=== PATIENT | female | born 1990 | race Caucasian/White ===

== ENCOUNTER 2024-10-14 15:02 | Emergency (ER) | payer BC, SELFPAY ==
[2024-10-14 15:28] VITALS: BP 99/57
--- NOTE | 2024-10-14 15:32 | ED.GENMED ---
ED Provider Triage
<René Bryant PA-C - Last Filed: 10/14/24 15:33>
-
Patient seen by provider in Triage?: Seen in Triage
34-year-old female otherwise healthy presents with chest pain ongoing but worsened yesterday. The pain was sharp in nature worse with deep breathing. She stopped control about 1 month ago. No recent travel or surgery. She denies leg
swelling or calf pain. She also notes palpitations. She spoke with her doctor and they sent her here for evaluation
Vital signs are stable through triage. EKG shows sinus rhythm with PVCs. Given pleuritic nature D-dimer is ordered chest x-ray ordered EKG troponin and test.
Seen by provider in triage. Warrants further assessment
History of Present Illness
<René Bryant PA-C - Last Filed: 10/14/24 15:33>
General
Chief Complaint: Chest Pain
Time Seen by Provider: 10/14/24 18:02
<Kalpesh Hodgson Jr., PA-C - Last Filed: 10/14/24 21:21>
General
Source: patient
Exam Limitations: none
Nursing documentation reviewed up to this point in time: agreed with
History of Present Illness
History of Present Illness:
34-year-old female with past medical history of palpitations and PVCs presenting to the emergency department today with concerns of chest pain a few hours prior to arrival. She claims that she was at work and had a sharp discomfort made worse with
deep breaths to the left side of the chest with radiation down the left arm. Denies similar symptoms in the past. Denies associated nausea vomiting shortness of breath or diaphoresis. No recent trauma surgery immobilization, leg swelling, history
of blood clots
Past History
<René Bryant PA-C - Last Filed: 10/14/24 15:33>
Past History
ED Past Medical History: Other (Frequent PVCs, palpitations followed by cardiology Dr. Ford)
ED Past Surgical History: Negative Cardiac
Social History
Tobacco: Non-smoker
Alcohol: None
Drug: None
Personal:
Living: with family
Employment: Employed
Family History
Family History: Other (Noncontributory)
Review of Systems
<Kalpesh Hodgson Jr., PA-C - Last Filed: 10/14/24 21:21>
Review of Systems
Allergies reviewed?: Yes
All Other Systems: ROS reviewed and negative except as documented in HPI and ROS
Phy Exam
<Kalpesh Hodgson Jr., PA-C - Last Filed: 10/14/24 21:21>
Physical Exam
Physical Exam:
GENERAL: Alert , in no apparent distress
EYE: pupils equal and reactive
NECK: Supple, no significant adenopathy.
ENT: o/p clr, mmm.
CARDIAC: Regular rate and rhythm .
LUNGS: Clear breath sounds bilaterally, no acute respiratory distress, no wheezes/rales/rhonchi
ABDOMEN: Soft, without focal tenderness, no r/g, no cvat
NEUROLOGICAL: Alert and oriented, no focal neuro deficits
SKIN: Warm and dry, skin intact.
MUSCULOSKELETAL: No edema, well perfused.
PSYCH: Normal and appropriate interaction.
Scores
<Kalpesh Hodgson Jr., PA-C - Last Filed: 10/14/24 21:21>
Heart Score for Chest Pain Patients
STEMI patient?: Not applicable
Course
<René Bryant PA-C - Last Filed: 10/14/24 15:33>
Orders/Labs/Results
Orders:
Orders
10/14/24 15:03
Electrocardiogram (*1) Urgent
Reason for Study: Chest Pain
10/14/24 15:04
EKG- Treatment ONCE
10/14/24 15:30
Test Result ONCE
10/14/24 15:31
CR Chest - 2 Views Urgent
Comment:
Reason For Exam: chest pain
10/14/24 15:45
Complete Blood Count/With Diff Urgent
Comprehensive Metabolic Panel Urgent
D-Dimer Urgent
HCG, Serum Qualitative Screen Urgent
Troponin I Urgent
10/14/24 18:09
EKG [Electrocardiogram (*1)] Urgent
Reason for Study: Chest Pain
EKG- Treatment ONCE
10/14/24 18:33
Troponin I Urgent
Abnormal Lab Results
10/14/24
15:45
BUN 18 H mg/dl
(7-17)
Glucose 115 H mg/dl
(70-99)
10/14/24 15:45
10/14/24 15:45
Vital Signs
Initial and Last Documented VS:
Initial Vital Signs
Temp Pulse Resp BP Pulse Ox
97.8 F 67 18 99/57 100
10/14/24 15:28 10/14/24 15:28 10/14/24 15:28 10/14/24 15:28 10/14/24 15:28
Last Documented Vital Signs
Temp Pulse Resp BP Pulse Ox
97.8 F 72 18 115/70 100
10/14/24 15:28 10/14/24 20:00 10/14/24 20:00 10/14/24 20:00 10/14/24 20:00
<Kalpesh Hodgson Jr., PA-C - Last Filed: 10/14/24 21:21>
Orders/Labs/Results
Orders:
Orders
10/14/24 15:03
Electrocardiogram (*1) Urgent
Reason for Study: Chest Pain
10/14/24 15:04
EKG- Treatment ONCE
10/14/24 15:30
Test Result ONCE
10/14/24 15:31
CR Chest - 2 Views Urgent
Comment:
Reason For Exam: chest pain
10/14/24 15:45
Complete Blood Count/With Diff Urgent
Comprehensive Metabolic Panel Urgent
D-Dimer Urgent
HCG, Serum Qualitative Screen Urgent
Troponin I Urgent
10/14/24 18:09
EKG [Electrocardiogram (*1)] Urgent
Reason for Study: Chest Pain
EKG- Treatment ONCE
10/14/24 18:33
Troponin I Urgent
Abnormal Lab Results
10/14/24
15:45
BUN 18 H mg/dl
(7-17)
Glucose 115 H mg/dl
(70-99)
10/14/24 15:45
10/14/24 15:45
Vital Signs
Initial and Last Documented VS:
Initial Vital Signs
Temp Pulse Resp BP Pulse Ox
97.8 F 67 18 99/57 100
10/14/24 15:28 10/14/24 15:28 10/14/24 15:28 10/14/24 15:28 10/14/24 15:28
Last Documented Vital Signs
Temp Pulse Resp BP Pulse Ox
97.8 F 72 18 115/70 100
10/14/24 15:28 10/14/24 20:00 10/14/24 20:00 10/14/24 20:00 10/14/24 20:00
<Kalpesh Hodgson Jr., PA-C - Last Filed: 10/14/24 21:21>
MDM/Problems Addressed
MDM/Problems Addressed:
34-year-old female presenting to the emergency department with concerns of chest pain prior to arrival rating down the left arm. Here normal vital signs patient is well-appearing normal heart lung exam labs unremarkable 2 negative troponin test
negative D-dimer PE very unlikely ACS very unlikely in the setting. Chest x-ray normal. Low risk for life-threatening etiology advised for close outpatient follow-up. Return precautions given.
<Kalpesh Hodgson Jr., PA-C - Last Filed: 10/14/24 21:21>
*Critical Care Note
Total Time (30-74mins, 75-104mins- exclusive of procedures): Not Applicable
ED Attending Note
<René Bryant PA-C - Last Filed: 10/14/24 15:33>
-
Portions of this chart may have been created with voice recognition software.� Occasional wrong word or��sound alike� substitutions may have occurred due to the inherent limitations of voice recognition software.
Discharge Plan
Departure
Patient Disposition: Home (Routine Discharge)
Date of Disposition: 10/14/24
Time of Disposition: 19:47
Patient with high blood pressure during this ER visit?: No
Condition: Good
Covid-19: Not Applicable
Discharge Problem:
Chest pain
Instructions: Chest Pain PCP Follow Up
Prescriptions:
No Action
Formula-DHA 1 EACH capsule
1 ea PO DAILY
calcium carbonate-vitamin D3 500 mg-3.125 mcg (125 unit) Tablet
500 tab PO 1XD
acetaminophen 325 mg Tablet
650 mg PO Q4HPRN PRN (Reason: mild pain) Qty: 0 0RF
ibuprofen 600 mg Tablet
600 mg PO Q6HPRN PRN (Reason: moderate pain/cramps) Qty: 0 0RF
Referrals:
Derek Ford MD [Active] - Follow up in 5-7 days
Shayne Wong DO [Family Provider] -
Activity Restrictions/Additional Instructions:
You came to the emergency department today with concerns of chest pain earlier today. You had a reassuring exam. 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 Return to the emergency department for any worsening, new or concerning symptoms.
Interventions
Interventions:
*Risk Screen - Suicide Last Done: 10/14/24 15:28
*General Assessment Last Done: 10/14/24 15:28
*ED COVID-19 Vaccine History Last Done: 10/14/24 15:28
*Nursing Disposition Last Done: 10/14/24 20:53
ED- Cardiac Assessment Last Done: 10/14/24 20:00
Discharge Date and Time
Discharge Date/Time: 10/14/24 20:54
Print Language: FRISIAN
[2024-10-14 15:55] LABS: % Basophils 0.5 % (0-2); % Eosinophils 5.9 % (0-6); % Immature Granulocytes 0.2 % (0-0.5); % Monocytes 6.5 % (1.7-9.3); % Neutrophils 54.9 % (42.2-75.2); Absolute Eosinophils 0.4 10^3/uL (0-0.7); Absolute Lymphocytes 1.9 10^3/uL (1.2-3.4); Absolute Monocytes 0.4 10^3/uL (0.1-0.6); Absolute Neutrophils 3.3 10^3/uL (1.4-6.5); Hematocrit 40.5 % (37.0-47.0); Hemoglobin 13.7 g/dL (12.0-16.0); Mean Corp Hgb Conc. 33.8 g/dL (33.0-37.0); Mean Corpuscular Hgb 30.6 pg (27.0-31.0); Mean Corpuscular Volume 90.4 fL (81.0-99.0); Mean Platelet Volume 9.6 fL (7.4-10.4); Nucleated Red Blood Cells % 0 %; Platelet Count 263 10^3/uL (130-400); Red Blood Cell Count 4.48 10^6/uL (4.20-5.40); Red Cell Dist. Width 12.4 % (11.5-14.5)
[2024-10-14 16:00] VITALS: BP 115/70
[2024-10-14 16:09] LABS: ALT (SGPT) 18 U/L (0-35); AST (SGOT) 25 U/L (14-36); Albumin 4.8 g/dl (3.5-5.0); Alkaline Phosphatase 85 U/L (38-126); Blood Urea Nitrogen 18 mg/dl (7-17); Calcium 9.6 mg/dl (8.4-10.2); Carbon Dioxide 29 mmol/L (22-30); Chloride 100 mmol/L (98-107); Glucose 115 mg/dl (70-99); Potassium 3.8 mmol/L (3.5-5.1); Sodium 138 mmol/L (135-145); Total Protein 7.6 g/dl (6.3-8.2); eGFR > 60.00
[2024-10-14 16:10] LABS: HCG, Serum Qualitative Screen Negative
[2024-10-14 16:18] LABS: Troponin I < 0.012 ng/ml
[2024-10-14 16:38] LABS: D-Dimer 0.32 ug/mlFEU (0.00-0.50)
[2024-10-14 19:08] LABS: Troponin I < 0.012 ng/ml
[2024-10-14 20:00] VITALS: BP 115/70
== END 2024-10-14 20:54 | disposition home or self-care (01) ==
LOC: EMR 15:02
PROVIDERS: Physician Assistant; EMERGENCY PHYSICIAN Student in an Organized Health Care Education/Training Program; FAMILY PHYSICIAN Family Medicine
DX: R07.89 Other chest pain (principal); I49.3 Ventricular premature depolarization
CPT/HCPCS: 99283; 71046; 80053; 84484; 84703; 85025; 85379; 93005